=== PATIENT | male | born 1990 | race Hispanic/Latino ===

== ENCOUNTER 2023-01-28 13:03 | Emergency (ER) | payer SELFPAY ==
[2023-01-28] MEDS ORDERED: AMOX/K CLAV875 M1 PO (13:56)
[2023-01-28 14:04] VITALS: BP 115/74
== END 2023-01-28 14:07 | disposition home or self-care (01) | DRG 159 ==
LOC: ED 13:03
PROC: 0HQ1XZZ Repair Face Skin, External Approach (ICD-10-PCS; principal; 2023-01-28)
DX: S01.511A Laceration without foreign body of lip, initial encounter (principal); I10 Essential (primary) hypertension; W50.0XXA Accidental hit or strike by another person, initial encounter; Y93.66 Activity, soccer; Y92.322 Soccer field as the place of occurrence of the external cause